=== PATIENT | female | born 1975 ===

== ENCOUNTER 2020-03-07 10:28 | Outpatient (REF) | payer OTHER, SELFPAY ==
[2020-03-07 11:28] LABS: MANUAL DIFF FLAG NO
[2020-03-07 11:40] LABS: Basophils Percent Auto 0.3 % (0-2); Eosinophils Absolute Auto 0.1 X10*3/uL (0.0-0.4); Eosinophils Percent Auto 1.2 % (0-4); Hemoglobin 11.1 g/dl (12.0-16.0); Imm Gran Abs Auto 0.03 X10*3/uL (0.00-0.03); Imm Gran Pct Auto 0.4 % (0.0-0.4); Lymphocytes Absolute Auto 1.3 X10*3/uL (1.2-4.9); Lymphocytes Percent Auto 17.2 % (20-40); Mean Corpuscular HGB Conc 31.7 g/dl (31.0-35.0); Mean Corpuscular Hemoglobin 26.2 pg (27.0-33.0); Mean Corpuscular Volume 82.5 fL (80-98); Mean Platelet Volume 10.3 fL (9.4-12.3); Monocytes Absolute Auto 0.5 X10*3/uL (0.1-1.2); Monocytes Percent Auto 6.1 % (2-11); Neutrophils Absolute Auto 5.7 X10*3/uL (2.0-8.3); Neutrophils Percent Auto 74.8 % (45-73); Platelet Count 428 X10*3/uL (160-400); Red Blood Count 4.24 X10*6/uL (4.20-5.50); Red Cell Distribution Width 14.8 % (11.0-16.0); White Blood Count 7.6 X10*3/uL (4.8-10.8)
[2020-03-07 12:17] LABS: HCG Quantitative < 2 mIU/mL
[2020-03-07 12:32] LABS: Alanine Aminotransferase 9 U/L (0-31); Albumin Level 3.9 g/dL (3.5-5.0); Alkaline Phosphatase 59 U/L (39-117); Anion Gap 15 (12-20); Aspartate Amino Transferase 11 U/L (5-31); Bilirubin Total 0.4 mg/dL (0.0-1.0); Blood Urea Nitrogen 14 mg/dL (9-16); Calcium 8.9 mg/dL (8.4-10.2); Carbon Dioxide 27 mmol/L (22-29); Chloride 106 mmol/L (96-108); Cholesterol 134 mg/dL; Estimated Glomerular Filt Rate > 60; Glucose Fasting 93 mg/dL (60-99); HDL Cholesterol 40 mg/dL; LDL Cholesterol Calculated 82 mg/dl; Potassium 4.9 mmol/l (3.3-5.1); Sodium 143 mmol/L (135-145); Total Protein 7.4 g/dL (6.5-8.0); Triglycerides 61 mg/dL
[2020-03-07 12:41] LABS: Rheumatoid Factor 26.3 IU/mL (<15.0)
== END 2020-03-07 10:29 | disposition home or self-care (01) ==
LOC: HO.LAB 10:28
PROVIDERS: Visit Provider Nurse Practitioner Family
DX: M19.90 Unspecified osteoarthritis, unspecified site (principal); Z00.00 Encounter for general adult medical examination without abnormal findings
CPT/HCPCS: 36415; 80053; 80061; 84702; 85025; 86431

== ENCOUNTER 2020-11-17 07:56 | Outpatient (REF) | payer OTHER, SELFPAY ==
[2020-11-17 08:32] LABS: Estimated Average Glucose 103 mg/dL; Hemoglobin A1c % 5.2 %
[2020-11-17 08:49] LABS: Alanine Aminotransferase 10 U/L (0-31); Albumin Level 3.9 g/dL (3.5-5.0); Alkaline Phosphatase 66 U/L (39-117); Anion Gap 12 (12-20); Aspartate Amino Transferase 11 U/L (5-31); Bilirubin Total 0.3 mg/dL (0.0-1.0); Blood Urea Nitrogen 13 mg/dL (9-16); Calcium 9.2 mg/dL (8.4-10.2); Carbon Dioxide 24 mmol/L (22-29); Chloride 107 mmol/L (96-108); Estimated Glomerular Filt Rate > 60; Glucose Fasting 110 mg/dL (60-99); Potassium 4.5 mmol/L (3.3-5.1); Sodium 138 mmol/L (135-145)
[2020-11-17 09:10] LABS: TSH reflex Free T4 0.89 uIU/mL (0.32-4.0)
[2020-11-20 16:22] LABS: Cyclic Citrullinated Peptide <16 UNITS
[2020-11-20 23:33] LABS: Anti Nuclear Antibody Screen NEGATIVE (NEGATIVE)
== END 2020-11-17 07:57 | disposition home or self-care (01) ==
LOC: HO.LAB 07:56
PROVIDERS: PCP Physician Assistant; Visit Provider Physician Assistant
DX: Z13.1 Encounter for screening for diabetes mellitus (principal); M19.90 Unspecified osteoarthritis, unspecified site
CPT/HCPCS: 36415; 80053; 83036; 84443; 86038; 86039; 86200

== ENCOUNTER 2022-06-03 16:40 | Outpatient (REF) | payer OTHER, SELFPAY ==
[2022-06-03 17:36] LABS: Hematocrit 39.9 % (37.0-47.0); Mean Corpuscular HGB Conc 32.6 g/dl (31.0-35.0); Mean Corpuscular Hemoglobin 28.1 pg (27.0-33.0); Mean Corpuscular Volume 86.4 fL (80.0-98.0); Platelet Count 249 X10*3/uL (160-400); Red Blood Count 4.62 X10*6/uL (4.20-5.50); Red Cell Distribution Width 13.9 % (11.0-16.0); White Blood Count 8.2 X10*3/uL (4.8-10.8)
[2022-06-03 18:28] LABS: Creatinine Urine 212.61 mg/dL; Microalbum/Creatinine Ratio Ur 6.1 ug/mg cr
[2022-06-03 18:34] LABS: Alanine Aminotransferase 12 U/L (0-31); Albumin Level 4.2 g/dL (3.5-5.0); Alkaline Phosphatase 81 U/L (39-117); Anion Gap 11 (12-20); Aspartate Amino Transferase 14 U/L (5-31); Bilirubin Total 0.5 mg/dL (0.0-1.0); Blood Urea Nitrogen 16 mg/dL (9-16); Carbon Dioxide 27 mmol/L (22-29); Chloride 106 mmol/L (96-108); Estimated Glomerular Filt Rate 54; Glucose Fasting 136 mg/dL (60-99); Iron 73 mcg/dL (30-160); Percent Iron Saturation 19 % (15-50); Potassium 4.4 mmol/L (3.3-5.1); Rheumatoid Factor 18.1 IU/mL (<15.0); Sodium 140 mmol/L (135-145); Total Iron Binding Capacity 386 mcg/dL (228-428); Total Protein 7.3 g/dL (6.5-8.0); Unsaturated Iron Binding 313 ug/dL
[2022-06-03 18:50] LABS: TSH reflex Free T4 1.27 uIU/mL (0.32-4.0)
[2022-06-04 03:38] LABS: CT PCR NOT DETECTED (Not Detect.); NG PCR NOT DETECTED (Not Detect.)
[2022-06-05 04:08] LABS: Syphilis Screen Nonreactive (Nonreactive)
[2022-06-05 04:35] LABS: HBS Num1 0.27 mIU/mL (0-7.99); HBc Num1 0.09 S/CO (0.00-0.79); HBsAGNum1 0.32 S/CO (0.00-0.99); HIV AB/AG Nonreactive (Nonreactive); HIV Num 1 0.05 S/CO (0.00-0.99); Hepatitis B Core Antibody Nonreactive (Nonreactive); Hepatitis B Surface Antigen Negative (Negative); ~HepC Num1 0.11 S/CO (0.00-0.79); ~Hepatitis B Surface Antibody NONREACTIVE (Nonreactive); ~Hepatitis C Antibody Nonreactive (Nonreactive)
== END 2022-06-03 16:41 | disposition home or self-care (01) ==
LOC: HO.LAB 16:40
PROVIDERS: PCP Physician Assistant; Visit Provider Physician Assistant
DX: Z13.29 Encounter for screening for other suspected endocrine disorder (principal); Z11.3 Encounter for screening for infections with a predominantly sexual mode of transmission; Z11.4 Encounter for screening for human immunodeficiency virus [HIV]; I10 Essential (primary) hypertension; D50.9 Iron deficiency anemia, unspecified; R76.8 Other specified abnormal immunological findings in serum; Z20.2 Contact with and (suspected) exposure to infections with a predominantly sexual mode of transmission
CPT/HCPCS: 0353U; 80053; 82043; 83540; 84443; 85027; 86141; 86431; 86704; 86706; 86780; 86803; 87340; 87389

== ENCOUNTER 2022-08-16 12:40 | Outpatient (REF) | payer OTHER, SELFPAY ==
--- NOTE | ~2022-08-16 | MM_ITS ---
EXAMINATION: MM SCREENING DIGITAL BREAST TOMOSYNTHESIS, BILATERAL CLINICAL INFORMATION: Screening. Asymptomatic. No prior mammography. Age 47. No known family history breast cancer. The lifetime risk of breast cancer based on the Tyrer-Cuzick Model is 8%. COMPARISON: None (current study represents initial baseline exam). TECHNIQUE: Digital breast tomosynthesis is performed in both the craniocaudal and mediolateral oblique views along with computer-aided detection (CAD). Synthesized 2D images are generated from the tomosynthesis. FINDINGS: There are scattered areas of fibroglandular density (ACR BI-RADS breast composition Category b). There are no significant masses, abnormal calcifications, or other abnormalities. The axilla and skin contours are unremarkable. MM/MM tomosynthesis screening BI IMPRESSION: No mammographic evidence of malignancy. ASSESSMENT: BI-RADS 1: Negative RECOMMENDATION: Routine annual mammography screening. This patient's information was entered into a reminder system with a target due date for their next mammogram.
== END 2022-08-16 12:41 | disposition home or self-care (01) ==
LOC: HO.MAMMO 12:40
PROVIDERS: PCP Physician Assistant; Visit Provider Physician Assistant
DX: Z12.31 Encounter for screening mammogram for malignant neoplasm of breast (principal)
CPT/HCPCS: 77063; 77067

== ENCOUNTER 2022-12-18 08:28 | Outpatient (AMB) | payer OTHER, SELFPAY ==
--- NOTE | 2022-12-18 08:33 | MHC.OFFVIS ---
Intake Vital Signs 12/18/22 08:34 Height 5 ft 7 in Weight 195 lb 12.328 oz BMI 30.7 BP 138/76 Blood Pressure Location Rt brachial Position Sitting Pulse 88 Pulse Source Pulse Oximeter Temp 97.4 F Temp Source Skin Pulse Oximetry (%) 97 Intake Visit Reasons: Abnormal lab Intake Note: New pt presents today for discussion of abnormal lab. C/o generalized pain and occasional joint swelling. Pain in bilateral shoulders, worse in right side. Also bl knee pain Back End Developer Required: No Accompanied by: Self / Same As Patient Allergies No Known Allergies Allergy (Verified 12/18/22 08:41) Medication List - Last Reconciled 12/18/22 by Jonatan Israel MD cyclobenzaprine 10 mg PO BEDTIME 30 days lisinopril 10 mg PO DAILY magnesium oxide 250 mg PO DAILY 30 days miscellaneous medical supply (Blood Pressure Cuff) As directed naproxen 375 mg PO BID PRN 10 days HPI HPI Comments History of Present Illness Details This is a 47-year-old female who presents for evaluation of polyarthralgia. Labs showed borderline positive rheumatoid factor. 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 She gets bilateral shoulder pain, worse on the right as well as pain and cracking of her knees. She denies knee buckling or giving out. She is unaware of any family history of autoimmune rheumatic disease. Denies any history of DVT/PE [facility] Medical History Bilateral knee pain Arthritis General medical examination Lithoptysis Surgical History H/O left nephrectomy Family History Mother No problems noted. 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- [employer] Current occupational exposures/hazards: No Cognitive needs: No Hearing needs: No Vision needs: Yes Female Reproductive History Menstrual Total pregnancies: 5 [place] [facility] arthralgias Physical Exam Vital Signs: Last Vital Signs Temp 97.4 F 12/18/22 08:34 Pulse 88 12/18/22 08:34 BP 138/76 12/18/22 08:34 Pulse Ox 97 12/18/22 08:34 BMI result Body Mass Index 30.7 Const General: cooperative, healthy appearing and comfortable Nutritional Appearance: overweight Orientation/consciousness: patient oriented x3 Limitations: no limitations HEENT Head: Yes normocephalic and Yes atraumatic Mouth: moist mucous membranes Resp Effort & Inspection: normal respiratory effort and able to speak in complete sentences Auscultation: clear to auscultation bilaterally Cardio Rate: regular rate Rhythm: regular rhythm Heart sounds: S1 normal heart sound present GI Inspection: No distended Palpation (GI): Soft to palpation and nontender Skin General skin exam: no rashes or lesions noted Neuro General: patient oriented x3 Extrem Other: Negative empty can test bilaterally Positive infraspinatus test on the right Right subacromial area tenderness Bilateral knee crepitus equivocal Tran's test bilaterally No active synovitis Assessment & Plan Assessment & Plan (1) Rheumatoid factor positive: Code(s): R76.8 - Other specified abnormal immunological findings in serum Plan: This is a 47-year-old female who presents for evaluation of polyarthralgia in the setting of a borderline positive rheumatoid factor. I do not see any signs of autoimmune rheumatic disease upon my evaluation. Patient has signs of rotator cuff tendinopathy on the right. She was not interested in physical therapy. Explained to patient the features of inflammatory arthritis. Advised patient to come back for re-evaluation if she develops similar symptoms Plan I spent 20 minutes reviewing patient's chart, evaluating patient, ordering diagnostic workup, counseling patient and documenting in the chart Coding Level of Care Code New Pt Level 3 (08089) Diagnoses Rheumatoid factor positive R76.8
[2022-12-18 08:34] VITALS: BP 138/76; PULSE 88; TEMP 36.3; O2SAT 97; BMI 30.7
== END 2022-12-18 09:17 | disposition home or self-care (01) ==
PROVIDERS: PCP Physician Assistant; Visit Provider Student in an Organized Health Care Education/Training Program
DX: R76.8 Other specified abnormal immunological findings in serum (principal)
CPT/HCPCS: 99203

== ENCOUNTER → 2022-12-18 08:28 | Outpatient (BNVA) | payer OTHER, SELFPAY | PROVIDERS: PCP Physician Assistant; Visit Provider Student in an Organized Health Care Education/Training Program ==

== ENCOUNTER 2023-01-06 12:38 | Outpatient (AMB) | payer OTHER, SELFPAY ==
[2023-01-06 12:43] VITALS: BMI 31.0
--- NOTE | 2023-01-06 12:43 | MHC.AMNUTRGE ---
Intake VS Expanded 01/06/23 12:43 01/12/23 21:14 Height 5 ft 7 in 5 ft 7 in Weight 198 lb 3.129 oz 198 lb BMI 31.0 31.0 Intake Visit Reasons: Obesity Allergies No Known Allergies Allergy (Verified 12/18/22 08:41) HPI Nutrition Presentation Details Pt presents for MNT for obesity. The Pt was referred by Becky PAK Pt reports having a solitary kidney and reports having hx of high blood pressure. works from 11 PM -7AM Pt reports having good appetite and wants to work on weight loss, better BP level and prevention of DM related to elevated FBG Typical meal 8 am: Cambodian muffin with coffee Gets up 3-4 pm : meals lio chicken empanada in air fryer and broccoli and coffee snacks on chips or ramen noodles Drinks coffee 3-4 times/d ) 7 am coffee Cambodian ( 3cream and 3 sugar and caramel shot) muffin sausage and cheese fruits per day not including dairy : not including likes fish physical activity: sedentary ETOH/Smoking: no YXK-Npntixq-Yp.Jeor Equation Height 5 ft 7 in Weight 198 lb Resting Metabolic Rate 1578.44 Calculated Activity Level Sedentary Calories Needed to Maintain Weight 1894.13 Diagnosis Nutrition problem #1 food nutri know defi As related to (etiology) #1 diagnosis As evidenced by (sign/symptom) #1 no prior educ - nutri rec Monitoring/Goals Nutrition problem monitoring level of knowledge/skill Nutrition goal/outcome list 3 CHO foods, wt loss 5lbs in 2 months and list 3 high fiber foods Outcome progress verbalized understanding Learning/Education Readiness to learn good Most Recent Diabetes Results: Microalb/Creat Ratio 6.1 ug/mg cr 06/03/22 Creatinine 1.09 mg/dL (0.5-1.4) 06/03/22 Blood Urea Nitrogen 16 mg/dL (9-16) 06/03/22 Sodium 140 mmol/L (135-145) 06/03/22 Potassium 4.4 mmol/L (3.3-5.1) 06/03/22 Chloride 106 mmol/L (96-108) 06/03/22 Carbon Dioxide 27 mmol/L (22-29) 06/03/22 Calcium 9.0 mg/dL (8.4-10.2) 06/03/22 AST 14 U/L (5-31) 06/03/22 ALT 12 U/L (0-31) 06/03/22 Total Protein 7.3 g/dL (6.5-8.0) 06/03/22 Albumin 4.2 g/dL (3.5-5.0) 06/03/22 PFSH Medical History Bilateral knee pain Arthritis General medical examination Lithoptysis Surgical History H/O left nephrectomy Family History Mother No problems noted. 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- [employer] Current occupational exposures/hazards: No Cognitive needs: No Hearing needs: No Vision needs: Yes Assessment & Plan Assessment & Plan (1) Obese: Code(s): E66.9 - Obesity, unspecified Qualifiers: Body mass index: BMI 30.0-30.9 Obesity classification: adult class 1 (BMI 30 - 34.9) Obesity type: due to excess calories Serious obesity comorbidity presence: without serious comorbidity Qualified Code(s): E66.09 - Other obesity due to excess calories; Z68.30 - Body mass index [BMI] 30.0-30.9, adult Plan: wt: 90 kg Est kcal needs as per MSJ: 1800 (40% carb, 30% protein/fat) Est fluid needs as per 25-30 ml/d: 2250- 2700 Est prot per day as per 1 g/kg bw: 90 Recommend fiber intake : 8-10 g per day and gradually increase to 25-28 g per day for women and 35-38 g for men or as tolerated Recommend sodium intake per day : less than 2000 mg Educated patient on: ( R = reviewed V = verbalizes understanding N/R = needs review N/A = not applicable Food sources of carbohydrate, adequate serving sizes and its role in various health conditions: R Differences between complex carbohydrates a simple carbohydrates, role of fiber in diet: R Differences between types of fats and role in diet (mono on saturated fat fatty acids, saturated fatty acids, trans fats): R Food sources of sodium in salt and healthy modifications for heart health in kidney health: R Vitamins and minerals: R Healthy plate method concept: R Physical activity: Benefits a precaution: R (2) Elevated fasting blood sugar: Code(s): R73.01 - Impaired fasting glucose Patient Instructions: Work on following healthy plate method Reduce on foods with food colorings Coding Level of Care Code Nutr Indiv Intake (80578) Diagnoses Class 1 obesity due to excess calories without serious comorbidity with body mass index (BMI) of 30.0 to 30.9 in adult E66.09; Z68.30 Body mass index: BMI 30.0-30.9 Obesity classification: adult class 1 (BMI 30 - 34.9) Obesity type: due to excess calories Serious obesity comorbidity presence: without serious comorbidity Elevated fasting blood sugar R73.01 Time Spent (min) 30
[2023-01-12 21:14] VITALS: BMI 31.0
== END 2023-01-06 13:31 | disposition home or self-care (01) ==
PROVIDERS: PCP Physician Assistant; Visit Provider Dietitian, Registered
DX: E66.09 Other obesity due to excess calories (principal); Z68.30 Body mass index [BMI] 30.0-30.9, adult; R73.01 Impaired fasting glucose

== ENCOUNTER → 2023-01-06 12:38 | Outpatient (BNVA) | payer OTHER, SELFPAY | PROVIDERS: PCP Physician Assistant; Visit Provider Dietitian, Registered | DX: E66.9 Obesity, unspecified (principal); Z68.31 Body mass index [BMI] 31.0-31.9, adult | CPT/HCPCS: 97802 ==

== ENCOUNTER 2023-03-06 08:20 | Outpatient (AMB) | payer OTHER, SELFPAY ==
[2023-03-06 08:35] VITALS: BP 134/86; PULSE 70; O2SAT 99; BMI 31.8
--- NOTE | 2023-03-06 08:35 | A.OFFPC_ITS ---
Vital Signs 03/06/23 08:35 Height 5 ft 7 in Weight 203 lb BMI 31.8 BP 134/86 Blood Pressure Location Lt brachial Position Sitting Pulse 70 Pulse Source Pulse Oximeter Pulse Oximetry (%) 99 Oxygen Delivery Method Room Air Intake Visit Reasons: f/u HTN Coordinator Cardiopulmonary Services Required: No Scalp Treatment Specialist: Not Required per policy Accompanied by: Self / Same As Patient Allergies No Known Allergies Allergy (Verified 03/06/23 08:44) Tobacco use date assessed: 09/04/22 Dental Screening Dental Screen Date: 03/06/23 Did you have a dental visit in the last 12 months?: Yes Did you have a dental problem in the last 6 months where you did not have access to dental care?: No Was dental information given to patient?: Patient has dentist HPI f/u HTN HPI Details Patient is a 48-year-old female here today for follow-up visit. ?Patient's past medical history significant for HTN,? arthritis with positive rheumatoid factor.? Patient continues on cyclobenzaprine and naproxen. .. HTN:? Blood pressure today in office acceptable.? Patient continues on lisinop ril 10 mg without side effect. .. Poly arthralgia:? Patient does have history positive RF factor.? She mostly reports polyarthralgia over large joints such as her shoulders knees and ankles.? She has followed up with a circulating process inspector whom told her she has tendinitis. She does use cyclobenzaprine and naproxen on an as-needed basis with decent affect. She also uses cyclobenzaprine on a p.r.n. basis for pain as well. . Obesity: Have noted weight gain since last office visit. BMI now 31.8. She does report not being too physically active and does sleep a lot due to her busy work- 3rd shift. 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 She is not speaking with a dietitian [facility] Medical History Bilateral knee pain Arthritis General medical examination Lithoptysis Surgical History H/O left nephrectomy Family History Mother No problems noted. 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 Magdiel Greenberg, Glenna Martinez, Loki Maier and colleagues, with an educational blu from [employer]. Review of Systems Const Denies headache(s) Eyes Denies loss of vision ENT Denies vertigo, Denies dizziness, Denies headache(s) and Denies sore throat Card Denies chest pain, Denies leg edema and Denies lightheadedness Resp Denies cough, Denies hemoptysis and Denies wheezing GI Denies abdominal pain, Denies melena, Denies constipation, Denies diarrhea and Denies vomiting Denies urinary frequency, Denies dysuria and Denies urinary urgency Musc Denies arthralgias, Denies joint swelling, Denies numbness and Denies tingling Neuro Denies Abnormal speech present, Denies behavioral changes, Denies vertigo, Denies dizziness, Denies headache(s), Denies loss of vision, Denies memory loss, Denies numbness and Denies tingling Psych Denies anxiety, Denies behavioral changes, Denies depression, Denies memory loss and Denies panic attacks Adolph/Lymph Denies easy bleeding and Denies easy bruising Aller/Immun Denies wheezing Physical exam (Primary Care) Vital Signs: Last Vital Signs Pulse 70 03/06/23 08:35 BP 134/86 03/06/23 08:35 Pulse Ox 99 03/06/23 08:35 Oxygen Delivery Method Room Air 03/06/23 08:35 BMI result Body Mass Index 31.8 BMI Assessment/Plan discussion: High Tobacco/Smoking Status: Tobacco use Status Tobacco use date assessed 09/04/22 03/06/23 08:36 Patient Tobacco Use Status Former Tobacco user 03/06/23 08:36 Tobacco use type Cigarette 03/06/23 08:36 e-Cigarette/Vaping Use Never Used 03/06/23 08:36 Thrive Assessment: Date of Thrive Assessment Date Thrive assessed 09/04/22 03/06/23 08:36 Const Other: Obese General: healthy appearing, no acute distress, alert and awake Nutritional Appearance: well nourished Orientation/consciousness: oriented to person, oriented to place and oriented to time HENMT Ears: TM's normal bilaterally General nose exam: Normal nasal mucous membranes and turbinates present Eyes Conjunctivae: conjunctivae normal Sclerae: sclerae normal Pupils: Equal, round and reactive pupils present Neck Neck: Yes no lymphadenopathy and Yes no JVD Thyroid: Thyroid normal Carotids: no bruits Resp Effort & Inspection: normal respiratory effort and not tachypneic Auscultation: no crackles, no rales, no rhonchi and no wheezes Cardio Rate: regular rate Rhythm: regular rhythm Heart sounds: no murmurs and normal S1 and S2 GI Palpation (GI): Soft to palpation, nontender, no hepatomegaly and no splenomegaly Auscultation: normal bowel sounds Skin General skin exam: no rashes or lesions noted and dry skin Neuro General: oriented to person, oriented to place and oriented to time Cranial nerves: Yes Equal, round and reactive pupils present Speech: No Abnormal speech present Gait exam (Neuro): Normal gait present Motor exam (neuro): no tremor noted Extrem Right upper extremity: full ROM Left upper extremity: full ROM Right lower extremity: full ROM; no edema Left lower extremity: full ROM; no edema Psych Mental Status: mental status grossly normal Speech and movement: Normal speech and movement present Affect: normal affect Attitude: cooperative Thought process: Normal thought process present Assessment and Plan Assessment & Plan (1) HTN (hypertension): Code(s): I10 - Essential (primary) hypertension Qualifiers: Hypertension type: essential hypertension Qualified Code(s): I10 - Essential (primary) hypertension Plan: Patient's blood pressure acceptable today in office. Will continue her current dose of lisinopril with goal blood pressure to be below 140/90. (2) Rheumatoid factor positive: Code(s): R76.8 - Other specified abnormal immunological findings in serum Plan: Has followed up with a circulating process inspector in reports she has a tendinopathy in her shoulders and knees. Will continue to use cyclobenzaprine and naproxen as as needed basis for her tendinopathy. (3) Obese: Code(s): E66.9 - Obesity, unspecified Qualifiers: Body mass index: BMI 30.0-30.9 Obesity classification: adult class 1 (BMI 30 - 34.9) Obesity type: due to excess calories Serious obesity comorbidity presence: without serious comorbidity Qualified Code(s): E66.09 - Other obesity due to excess calories; Z68.30 - Body mass index [BMI] 30.0-30.9, adult Plan: Unfortunately has gained weight since last office visit. She is now speaking with a dietitian about better eating habits. Patient does understand her BMI is over 30 will work on being more physically active and adapting to better eating habits . Medications: Changed From magnesium oxide 250 mg PO DAILY 30 days 30 tabs 3RF M19.90 - Unspecified osteoarthritis, unspecified site To magnesium oxide 250 mg PO DAILY 90 days 90 tabs 1RF M19.90 - Unspecified osteoarthritis, unspecified site Coding Level of Care Code Est Pt Level 4 (93030) Diagnoses Essential hypertension I10 Hypertension type: essential hypertension Rheumatoid factor positive R76.8 Class 1 obesity due to excess calories without serious comorbidity with body mass index (BMI) of 30.0 to 30.9 in adult E66.09; Z68.30 Body mass index: BMI 30.0-30.9 Obesity classification: adult class 1 (BMI 30 - 34.9) Obesity type: due to excess calories Serious obesity comorbidity presence: without serious comorbidity
== END 2023-03-06 09:04 | disposition home or self-care (01) ==
PROVIDERS: PCP Physician Assistant; Visit Provider Physician Assistant
DX: I10 Essential (primary) hypertension (principal); R76.8 Other specified abnormal immunological findings in serum; E66.09 Other obesity due to excess calories; Z68.30 Body mass index [BMI] 30.0-30.9, adult
CPT/HCPCS: 99214

== ENCOUNTER 2023-04-01 10:07 | Outpatient (AMB) | payer OTHER, SELFPAY ==
[2023-04-01 10:16] VITALS: BMI 31.6
--- NOTE | 2023-04-01 10:16 | A.OFFVIS_ITS ---
Intake VS Expanded 04/01/23 10:16 Height 5 ft 7 in Weight 201 lb 15.095 oz BMI 31.6 Intake Visit Reasons: Obesity, elevated fasting blood sugar/CONFIRMED Allergies No Known Allergies Allergy (Verified 03/06/23 08:44) HPI Nutrition Presentation Details Pt presents for MNT for IFG Pt admits to dietary indiscretion. Wants to restart meal planning Most Recent Diabetes Results: Microalb/Creat Ratio 6.1 ug/mg cr 06/03/22 Creatinine 1.09 mg/dL (0.5-1.4) 06/03/22 Blood Urea Nitrogen 16 mg/dL (9-16) 06/03/22 Sodium 140 mmol/L (135-145) 06/03/22 Potassium 4.4 mmol/L (3.3-5.1) 06/03/22 Chloride 106 mmol/L (96-108) 06/03/22 Carbon Dioxide 27 mmol/L (22-29) 06/03/22 Calcium 9.0 mg/dL (8.4-10.2) 06/03/22 AST 14 U/L (5-31) 06/03/22 ALT 12 U/L (0-31) 06/03/22 Total Protein 7.3 g/dL (6.5-8.0) 06/03/22 Albumin 4.2 g/dL (3.5-5.0) 06/03/22 [facility] Medical History Bilateral knee pain Arthritis General medical examination Lithoptysis Surgical History H/O left nephrectomy Family History Mother No problems noted. 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- [employer] Current occupational exposures/hazards: No Cognitive needs: No Hearing needs: No Vision needs: Yes Assessment & Plan Assessment & Plan (1) Obese: Code(s): E66.9 - Obesity, unspecified Qualifiers: Obesity type: due to excess calories Obesity classification: adult class 1 (BMI 30 - 34.9) Serious obesity comorbidity presence: without serious comorbidity Body mass index: BMI 30.0-30.9 Qualified Code(s): E66.09 - Other obesity due to excess calories; Z68.30 - Body mass index [BMI] 30.0-30.9, adult Plan: wt: 90 kg (02/2023), 91 kg (03/2023) Est kcal needs as per MSJ: 1800 (40% carb, 30% protein/fat) Est fluid needs as per 25-30 ml/d: 2250- 2700 Est prot per day as per 1 g/kg bw: 90 Recommend fiber intake : 8-10 g per day and gradually increase to 25-28 g per day for women and 35-38 g for men or as tolerated Recommend sodium intake per day : less than 2000 mg Educated patient on: ( R = reviewed V = verbalizes understanding N/R = needs review N/A = not applicable * Food sources of carbohydrate, adequate serving sizes and its role in various health conditions: R * Differences between complex carbohydrates a simple carbohydrates, role of fiber in diet: R * Differences between types of fats and role in diet (mono on saturated fat fatty acids, saturated fatty acids, trans fats): R * Food sources of sodium in salt and healthy modifications for heart health in kidney health: R * Vitamins and minerals: R * Healthy plate method concept: R * Physical activity: Benefits a precaution: R (2) Elevated fasting blood sugar: Code(s): R73.01 - Impaired fasting glucose Plan To Resume meal planning, reducing carbs to less than 60 g at meal Patient Instructions: Have a meal replacement once a day Work on reducing carbs at dinner to less than 60 g following healthy plate method See meal ideas -emailed Coding Level of Care Code Nutr Indiv Subseq (15409) Diagnoses Class 1 obesity due to excess calories without serious comorbidity with body mass index (BMI) of 30.0 to 30.9 in adult E66.09; Z68.30 Obesity type: due to excess calories Obesity classification: adult class 1 (BMI 30 - 34.9) Serious obesity comorbidity presence: without serious comorbidity Body mass index: BMI 30.0-30.9 Elevated fasting blood sugar R73.01 Time Spent (min) 30
== END 2023-04-01 10:33 | disposition home or self-care (01) ==
PROVIDERS: PCP Physician Assistant; Visit Provider Dietitian, Registered
DX: E66.09 Other obesity due to excess calories (principal); Z68.30 Body mass index [BMI] 30.0-30.9, adult; R73.01 Impaired fasting glucose

== ENCOUNTER → 2023-04-01 10:07 | Outpatient (BNVA) | payer OTHER, SELFPAY | PROVIDERS: PCP Physician Assistant; Visit Provider Dietitian, Registered | DX: E66.09 Other obesity due to excess calories (principal); R73.01 Impaired fasting glucose; Z68.31 Body mass index [BMI] 31.0-31.9, adult | CPT/HCPCS: 97803 ==

== ENCOUNTER 2023-05-13 09:53 | Outpatient (AMB) | payer OTHER, SELFPAY ==
--- NOTE | 2023-05-13 09:58 | A.OFFVIS_ITS ---
Intake VS Expanded 05/13/23 09:59 Height 5 ft 7 in Weight 193 lb 1.999 oz BMI 30.2 Intake Visit Reasons: IFG/CONFIRMED Allergies No Known Allergies Allergy (Verified 03/06/23 08:44) HPI Nutrition Presentation Details Pt reports for MNT Obesity Pt works overnight Reports working on diet modifications, reducing on night snacks while at work and choosing beverages without sugar Reports having 3 meals/day and 1 snack Has tea in the morning has breakfast oatmeal/almond milk or sand with turkey tomato/olive oil 12-2 pm : tuna sand or rice/beans/chicke n 5-6pm : salad with shrimp or chicken wit h potatoes, water choosing smaller portion sizes water: 64 oz participating in gym: combination of aerobic/anaerobic exercise 1hr (3-5 times/wk) Reports feeling motivated Most Recent Diabetes Results: Microalb/Creat Ratio 6.1 ug/mg cr 06/03/22 Creatinine 1.09 mg/dL (0.5-1.4) 06/03/22 Blood Urea Nitrogen 16 mg/dL (9-16) 06/03/22 Sodium 140 mmol/L (135-145) 06/03/22 Potassium 4.4 mmol/L (3.3-5.1) 06/03/22 Chloride 106 mmol/L (96-108) 06/03/22 Carbon Dioxide 27 mmol/L (22-29) 06/03/22 Calcium 9.0 mg/dL (8.4-10.2) 06/03/22 AST 14 U/L (5-31) 06/03/22 ALT 12 U/L (0-31) 06/03/22 Total Protein 7.3 g/dL (6.5-8.0) 06/03/22 Albumin 4.2 g/dL (3.5-5.0) 06/03/22 PFSH Medical History Bilateral knee pain Arthritis General medical examination Lithoptysis Surgical History H/O left nephrectomy Family History Mother No problems noted. 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- [employer] Current occupational exposures/hazards: No Cognitive needs: No Hearing needs: No Vision needs: Yes Assessment & Plan Assessment & Plan (1) Obese: Code(s): E66.9 - Obesity, unspecified Qualifiers: Body mass index: BMI 30.0-30.9 Obesity classification: adult class 1 (BMI 30 - 34.9) Obesity type: due to excess calories Serious obesity comorbidity presence: without serious comorbidity Qualified Code(s): E66.09 - Other obesity due to excess calories; Z68.30 - Body mass index [BMI] 30.0-30.9, adult Plan: wt: 90 kg (02/2023), 91 kg (03/2023), 88 kg (04/2023) Est kcal needs as per MSJ: 1800 (40% carb, 30% protein/fat) Est fluid needs as per 25-30 ml/d: 2250- 2700 Est prot per day as per 1 g/kg bw: 90 Recommend fiber intake : 8-10 g per day and gradually increase to 25-28 g per day for women and 35-38 g for men or as tolerated Recommend sodium intake per day : less than 2000 mg Educated patient on: ( R = reviewed V = verbalizes understanding N/R = needs review N/A = not applicable * Food sources of carbohydrate, adequate serving sizes and its role in various health conditions: R * Differences between complex carbohydrates a simple carbohydrates, role of fiber in diet: R * Differences between types of fats and role in diet (mono on saturated fat fatty acids, saturated fatty acids, trans fats): R * Food sources of sodium in salt and healthy modifications for heart health in kidney health: R * Vitamins and minerals: R * Healthy plate method concept: R * Physical activity: Benefits a precaution: R (2) Elevated fasting blood sugar: Code(s): R73.01 - Impaired fasting glucose Plan To Resume meal planning, reducing carbs to less than 60 g at meal and less than 20 g as snack, including fiber rich foods Patient Instructions: Continue working on physical activity, goal 150 minutes/wk or as tolerated follow healthy plate method,at lunch, including non starchy veg and reducing portion of starches Be mindful of high salt foods - see list of low sodium food choices Coding Level of Care Code Nutr Indiv Subseq ([id number]) Diagnoses Class 1 obesity due to excess calories without serious comorbidity with body mass index (BMI) of 30.0 to 30.9 in adult E66.09; Z68.30 Body mass index: BMI 30.0-30.9 Obesity classification: adult class 1 (BMI 30 - 34.9) Obesity type: due to excess calories Serious obesity comorbidity presence: without serious comorbidity Elevated fasting blood sugar R73.01 Time Spent (min) 30
[2023-05-13 09:59] VITALS: BMI 30.2
== END 2023-05-13 10:40 | disposition home or self-care (01) ==
PROVIDERS: PCP Physician Assistant; Visit Provider Dietitian, Registered
DX: E66.09 Other obesity due to excess calories (principal); Z68.30 Body mass index [BMI] 30.0-30.9, adult; R73.01 Impaired fasting glucose

== ENCOUNTER → 2023-05-13 09:53 | Outpatient (BNVA) | payer OTHER, SELFPAY | PROVIDERS: PCP Physician Assistant; Visit Provider Dietitian, Registered | DX: E66.09 Other obesity due to excess calories (principal); R73.01 Impaired fasting glucose; Z68.30 Body mass index [BMI] 30.0-30.9, adult | CPT/HCPCS: 97803 ==

== ENCOUNTER 2024-03-01 14:26 | Outpatient (AMB) | payer OTHER, SELFPAY ==
[2024-03-01 15:05] VITALS: BP 132/80; PULSE 70; O2SAT 99; BMI 29.5
--- NOTE | 2024-03-01 15:05 | A.OFFPC_ITS ---
Vital Signs 03/01/24 15:05 Height 5 ft 7 in Weight 188 lb 2 oz BMI 29.5 BP 132/80 Blood Pressure Location Lt brachial Position Sitting Pulse 70 Pulse Source Pulse Oximeter Pulse Oximetry (%) 99 Oxygen Delivery Method Room Air Intake Visit Reasons: PE Intake Note: Patient is here today for a physical. 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: No Accompanied by: Self / Same As Patient Allergies No Known Allergies Allergy (Verified 03/01/24 15:13) Medication List - Last Reconciled 03/01/24 by Rob Ricci PA-C lisinopril 10 mg PO DAILY magnesium oxide 250 mg PO DAILY 90 days miscellaneous medical supply (Blood Pressure Cuff) As directed naproxen 375 mg PO BID PRN 10 days Tobacco use date assessed: 03/01/24 Dental Screening Dental Screen Date: 03/01/24 Did you have a dental visit in the last 12 months?: Yes Did you have a dental problem in the last 6 months where you did not have access to dental care?: No Was dental information given to patient?: Patient has dentist HPI PE HPI Details Patient is a 49-year-old female here today for routine annual physical ?Patient's past medical history significant for HTN,? arthritis with positive rheumatoid factor.?. .. HTN:? Blood pressure today in office acceptable.? Patient continues on lisinopril 10 mg without side effect. .. Poly arthralgia:? Patient does have history positive RF factor.? She mostly reports polyarthralgia over large joints such as her shoulders knees and ankles.? She has followed up with a secretary bookkeeper whom told her she has tendinitis. She does use ibuprofen and naproxen on an as-needed basis with decent affect. She does report naproxen causes her to be a bit tired does uses ibuprofen during the day She also uses cyclobenzaprine on a p.r.n. basis for pain as well. 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 Father Diabetes Heart problem Social History (Updated 03/01/24 @ 15:19 by Rob Ricci PA-C) Household Members: Children Housing: Apartment Patient Tobacco Use Status: Former Tobacco user Tobacco use type: Cigarette e-Cigarette/Vaping Use: Never Used Second Hand Smoke Exposure: No service: No Current occupational status: employed Current occupation: [employer] Current occupational exposures/hazards: No Cognitive needs: No Hearing needs: No Vision needs: Yes Questionnaire PHQ-9 Over the last 2 weeks, how often have you been bothered by any of the following problems? 1. Little interest or pleasure in doing things: not at all 2. Feeling down, depressed, or hopeless: not at all 3. Trouble falling or staying asleep, or sleeping too much: not at all 4. Feeling tired or having little energy: not at all 5. Poor appetite or overeating: not at all 6. Feeling bad about yourself - or that you are a failure or have let yourself or your family down: not at all 7. Trouble concentrating on things, such as reading the newspaper or watching television: not at all 8. Moving or speaking so slowly that other people could have noticed. Or the opposite - being so fidgety or restless that you have been moving around a lot more than usual: not at all 9. Thoughts that you would be better off or of hurting yourself in some way: not at all Total score: 0 Depression Screening Interpretation: Negative Depression Screening Done: Yes 09107 - PHQ-9 Billing: Yes Source: Developed by Drs. Magdiel Greenberg, Glenna Martinez, Loki Maier and colleagues, with an educational blu from [employer]. Thrive Questionnaire Date Thrive assessed: 03/01/24 I am a: Patient What is your living situation today?: I have a steady place to live Within the past 12 months, did the food you bought not last and you didn't have the money to get more?: Never true Within the past 12 months, did you worry whether your food would run out before you got money to buy more?: Never true Do you have trouble paying for medicines?: I choose not to answer this question Do you have trouble getting transportation to medical appointments?: No Do you have trouble paying your heating and electricity bill?: No Do you have trouble taking care of your child, family member or friend?: No Do you have trouble with day-to-day activities such as bathing, preparing meals, shopping, managing finances, etc.?: No Are you currently unemployed and looking for a job?: No Are you interested in more education?: No Please select the resources that you would like help with: None Currently or been in a relationship where the following occur: No concerns reported THRIVE Score: 0 AUDIT C Alcohol Use Questionnaire (AUDIT-C) 1. How often do you have a drink containing alcohol?: Never 3. How often do you have six or more drinks on one occasion?: Never Total Score: 0 MARY-7 AMB Questionnaire MARY-7 Date MARY - 7 assessed: 03/01/24 Feeling nervous, anxious, or on edge: 0 = Not at all Not being able to stop or control worryin = Not at all Worrying too much about different things: 0 = Not at all Trouble relaxin = Not at all Being so restless that it is hard to sit still: 0 = Not at all Becoming easily annoyed or irritable: 0 = Not at all Feeling afraid as if something awful might happen: 0 = Not at all Total MARY-7 score (0-4 normal; 5-9 mild; 10-14 moderate; 15-21 severe): 0 Source: Developed by Drs. Magdiel Greenberg, Glenna Martienz, Loki Maier and colleagues, with an educational blu from [employer]. MARY-7 Assessment Billing MARY-7 Assessment Tool: MARY-7 Assessment 73723 Review of Systems Const Denies body aches, Denies chills, Denies excessive sweating, Denies fatigue, Denies fever(s) and Denies headache(s) Eyes Denies blurry vision ENT Denies dysphagia, Denies vertigo, Denies dizziness, Denies headache(s), Denies hearing loss and Denies tinnitus Card Denies chest pain, Denies chest pain with activity, Denies syncope, Denies irregular heart rhythm and Denies dyspnea Resp Denies chest congestion, Denies cough, Denies hemoptysis, Denies dyspnea and Denies wheezing GI Denies abdominal pain, Denies melena, Denies hematochezia, Denies coffee ground emesis, Denies dysphagia, Denies diarrhea, Denies nausea and Denies vomiting Denies urinary frequency, Denies dysuria, Denies urinary hesitancy and Denies urinary urgency Musc Denies arthralgias, Denies limited range of motion, Denies muscle cramps and Denies muscle weakness Skin/Breast Denies rash and Denies skin ulcer Neuro Denies Abnormal speech present, Denies confusion, Denies vertigo, Denies dizziness, Denies syncope, Denies headache(s), Denies memory loss and Denies seizure-like activity Psych Denies anxiety, Denies confusion, Denies depression, Denies memory loss, Denies panic attacks and Denies paranoia Endo Denies excessive sweating, Denies fatigue, Denies flushing, Denies polydipsia and Denies polyuria Aller/Immun Denies wheezing Physical exam (Primary Care) Vital Signs: Last Vital Signs Pulse 70 03/01/24 15:05 BP 132/80 03/01/24 15:05 Pulse Ox 99 03/01/24 15:05 Oxygen Delivery Method Room Air 03/01/24 15:05 BMI result Body Mass Index 29.5 Tobacco/Smoking Status: Tobacco use Status Tobacco use date assessed 03/01/24 03/01/24 15:10 Patient Tobacco Use Status Former Tobacco user 03/01/24 15:19 Tobacco use type Cigarette 03/01/24 15:19 e-Cigarette/Vaping Use Never Used 03/01/24 15:19 PHQ-9: PHQ-9 Score PHQ-9: Total score 0 03/01/24 15:14 Depression Screening Interpretation: Negative Thrive Assessment: Date of Thrive Assessment Date Thrive assessed 03/01/24 03/01/24 15:07 Currently or been in a relationship where the following occur: No concerns reported Const General: cooperative, comfortable, no acute distress, alert and awake; No confusion Orientation/consciousness: oriented to person, oriented to place, patient oriented x3 and No confusion HENMT Head: Yes normocephalic Ears: external ears normal and TM's normal bilaterally Face and sinus: No sinus tenderness Mouth: Normal oral and palatal mucosa present and tongue normal Teeth and gingiva: dentition normal and gingiva normal Throat: Yes posterior oropharynx normal, Yes tonsils normal and Yes uvula midline Eyes Conjunctivae: conjunctivae normal Sclerae: sclerae normal Pupils: Equal, round and reactive pupils present EOM: EOMs intact bilaterally Direct Ophthalmoscopy: No no photophobia Neck Neck: Yes no lymphadenopathy, No tender and Yes no JVD Thyroid: Thyroid normal Carotids: no bruits Chest Chest palpation & inspection: no tenderness Resp Effort & Inspection: normal respiratory effort, no audible wheezes, not labored and no stridor Auscultation: no crackles, no rales, no rhonchi and no wheezes Cardio Jugular venous distension: no JVD Rate: regular rate, not bradycardic and not tachycardic Rhythm: regular rhythm Bruits: no carotid bruits Peripheral pulses: Peripheral pulses 2+ throughout GI Inspection: Yes normal to inspection, No abdominal wall ecchymosis and No visible herniation Palpation (GI): Soft to palpation, nontender, no guarding, not rigid and No hepatosplenomegaly present Auscultation: normoactive bowel sounds General: Yes no CVA tenderness Back/Spine/Pelvis Back: no CVA tenderness and No back tenderness Cervical Spine: cervical ROM normal Thoracic/Lumbar Spine: thoracic and lumbar spine normal to inspection, straight leg raise negative bilaterally, No thoraco-lumbar ROM limited and No lumbar spinal tenderness Skin Lesions: no lesions Rashes: no rashes Wounds: no wounds Neuro General: oriented to person, oriented to place, patient oriented x3, CN's II-XI intact bilaterally and No confusion Cranial nerves: Yes Equal, round and reactive pupils present and Yes Normal accommodation reflex present Cognition (Neuro): normal cognition Speech: No Abnormal speech present Gait exam (Neuro): Normal gait present Motor exam (neuro): 5/5 motor strength present throughout Extrem Right upper extremity: full ROM; no cyanosis Left upper extremity: full ROM; no cyanosis Right lower extremity: no edema Left lower extremity: no edema Psych Appearance: grossly normal Mental Status: mental status grossly normal Affect: normal affect Attitude: cooperative Thought process: Normal thought process present Office Procedures Flu Questionnaire Does the patient have a severe egg allergy?: No Does the patient have severe life threatening allergies?: No Does the patient have a fever or illness today?: No Has the patient ever had Guillain-Greenwald Syndrome?: No Has the patient ever had any past reaction to a flu shot?: No Immunizations Fluarix Triv [id number] (PF) 45 mcg (15 mcg x 3)/0.5 mL IM syringe Performing Provider: Rob Ricci PA-C Performing Location: [facility] [place] Administered by: OTTO Moffett on 03/01/24 15:06 Dose Route Admin Location Dispensed Lot Number Expiration Date [facility] [employer] 0.5 mL IM Left Deltoid 0.5 mL [id number] 09/20/24 [id number] Shopventory VIS Given Date VIS Provided VIS Publication Date 03/01/24 Single Vaccine 20 Eligibility Eligibility Date Funding Source Not [facility] Eligible 03/01/24 Private Coding Level of Care Code Est Pt Prev Care 40-64y(72392) Diagnoses Annual physical exam Z00.00 Essential hypertension I10 Hypertension type: essential hypertension Acute urticaria L50.8 Colon cancer screening Z12.11 Encounter for screening mammogram for malignant neoplasm of breast Z12.31 Breast cancer screening modality: mammogram Cervical cancer screening Z12.4 Additional Codes MARY-7 Assessment Billing - MARY-7 Assessment Tool: MARY-7 Assessment 29907 ([id number]) PHQ-9 - 40474 - PHQ-9 Billing: Yes ([id number]) Assessment & Plan Assessment & Plan (1) Annual physical exam: Code(s): Z00.00 - Encounter for general adult medical examination without abnormal findings Category: Medical Plan: As per HPI (2) HTN (hypertension): Code(s): I10 - Essential (primary) hypertension Category: Medical Qualifiers: Hypertension type: essential hypertension Qualified Code(s): I10 - Essential (primary) hypertension Plan: Patient's blood pressure acceptable today in office. Will continue her current dose of lisinopril 10 mg with goal blood pressure to remain below 140/90 (3) Acute urticaria: Code(s): L50.8 - Other urticaria Category: Medical Plan: Has noted an acute high formation over her left AC region particularly when she has food containing strawberry. She would like to do allergy testing (4) Colon cancer screening: Code(s): Z12.11 - Encounter for screening for malignant neoplasm of colon Category: Medical Plan: Still considering colon cancer screening. (5) Breast cancer screening: Code(s): Z12.39 - Encounter for other screening for malignant neoplasm of breast Category: Medical Qualifiers: Breast cancer screening modality: mammogram Qualified Code(s): Z12.31 - Encounter for screening mammogram for malignant neoplasm of breast Plan: Still considering repeat mammogram. (6) Cervical cancer screening: Code(s): Z12.4 - Encounter for screening for malignant neoplasm of cervix Category: Medical Plan: Still considering Pap screening Orders: Orders Hemoglobin A1c 03/01/24 R73.01 - Impaired fasting glucose Influenza [id number] Immunization 03/01/24 Z23 - Encounter for immunization Microalbumin, Random (w Creat) 03/01/24 I10 - Essential (primary) hypertension Complete Blood Count no Diff 03/01/24 I10 - Essential (primary) hypertension Comprehensive [place]. Panel Fast 03/01/24 I10 - Essential (primary) hypertension Medications: New ibuprofen 800 mg PO Q8H PRN 45 tabs 1RF pain 15 days R76.8 - Other specified abnormal immunological findings in serum Refilled lisinopril 10 mg PO DAILY 90 tabs 2RF I10 - Essential (primary) hypertension magnesium oxide 250 mg PO DAILY 90 tabs 1RF 90 days M19.90 - Unspecified osteoarthritis, unspecified site naproxen 375 mg PO BID PRN 20 tabs 0RF pain 10 days M19.90 - Unspecified osteoarthritis, unspecified site
== END 2024-03-01 15:39 | disposition home or self-care (01) ==
PROVIDERS: PCP Physician Assistant; Visit Provider Physician Assistant
DX: Z00.00 Encounter for general adult medical examination without abnormal findings (principal); I10 Essential (primary) hypertension; L50.8 Other urticaria; Z12.11 Encounter for screening for malignant neoplasm of colon; Z12.31 Encounter for screening mammogram for malignant neoplasm of breast; Z12.4 Encounter for screening for malignant neoplasm of cervix

== ENCOUNTER → 2024-03-01 14:26 | Outpatient (BNVA) | payer SELFPAY | PROVIDERS: PCP Physician Assistant; Visit Provider Physician Assistant | DX: Z00.00 Encounter for general adult medical examination without abnormal findings (principal); Z23 Encounter for immunization; I10 Essential (primary) hypertension; L50.8 Other urticaria; Z79.899 Other long term (current) drug therapy | CPT/HCPCS: 90471; 90656; 96127; 99396 ==

== ENCOUNTER 2024-06-29 09:00 | Outpatient (RCR) | payer OTHER, SELFPAY ==
[2024-06-07 10:02] VITALS: BP 140/78; PULSE 76; O2SAT 99
--- NOTE | 2024-06-08 07:32 | MHC.PT.EP ---
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 Pt expressing insidious onset of lower thoracic/upper lumbar pain with R sided radiculopathy which has been going on for about a month, R LE radiating sx more in the past two weeks. Pt exhibits impaired NATALI of the trunk, decreased strength of core stabilizers/proximal hip, impaired postural awareness, decreased functional mobility, and disturbed sleep at times due to sx. [place] will benefit from attending skilled PT services at a frequency of 2x/week x 4-6 weeks to address a lumbar stabilization program, implement HEP, and restore centralization of sx to the height of the lumbar spine. Pt demonstrated a positive response post eval to stretches initiated included seated trunk/table slides, gentle LBTR with pillow (for R side), and posterior pelvic tilt while hooklying. She was educated in the benefit of a walking program and goals of PT. She exhibits good rehab potential. PMH significant for HTN, hx positive RF factor, Bilateral knee pain (denied at eval this date)Lithoptysis, and H/O left nephrectomy. Frequency and Duration: The patient will be seen 2x/week x 4 weeks Short Term Goals: 1. Initiate self care/I HEP program to tolerance. 2. Pt will demonstrate centralization of sx to the height of the lumbar spine. 3. Pt will demonstrate of hip extension to 5/5 bilaterally. 4. Pt will demonstrate strength of hip abductors to 5/5 bilaterally. 5. Resume sleeping with less than 50% sleep disturbance. Drying Machine Back Tender Goals: 1. Pt will resume ADLS/IADLS MOD I with no radiating back pain. 2. Pt will demonstrate functional squat 3:3 trials with good technique. 3. Pt will demonstrate strength core stabilizers 5/5. 4. Pt will resume sleeping MOD I. 5. Resume walking program/gym MOD I. Treatment Plan: Modalities to reduce pain, spasms and effusion. Manual therapy to restore motion and function. Therapeutic exercise to improve strength and flexibility. Neuromuscular re-education for posture and balance. Therapeutic activities to return to functional activities of daily living. Electronically signed by: Lauryn Stoddard, PT, DPT Please sign and return to therapist. Thank you for your referral.
== END 2024-07-19 12:45 | disposition home or self-care (01) ==
LOC: HO.PTS 09:00
PROVIDERS: Visit Provider Physician Assistant
DX: M51.9 Unspecified thoracic, thoracolumbar and lumbosacral intervertebral disc disorder (principal); M54.16 Radiculopathy, lumbar region
CPT/HCPCS: 97110; 97140; 97161; 97535